=== PATIENT | male | born 1985 | race Caucasian/White ===

== ENCOUNTER 2016-07-13 21:17 | Inpatient (IN) | payer SELFPAY ==
--- NOTE | ~2016-07-13 | HP ---
History And Physical [facility] [address] [place]. [address] NAME: DAVON ROD : 89 STATUS : ADM IN [facility]#: [id number] AGE: 31 ADM/REG DATE : 07/13/16 MR#: [id number] REPORT SERV DATE: 07/14/16 DICTATED BY: JYOTI CUMMINGS DATE: 07/13/16 REPORT STATUS : Draft TRANSCRIBED BY: MODKirill DATE: 07/13/16 DATE OF ADMISSION: 07/13/2016 REASON FOR ADMISSION: Anemia with guaiac-positive stool. HISTORY OF PRESENT ILLNESS: A 31-year-old, type 1 insulin-dependent diabetic who became insulin-dependent at age 11 unfortunately, known history of DKA two and half years ago, known history of neuropathy on gabapentin, known history of gastric ulcer. He had an endoscopy in the past. He has had two episodes of H.pylori as well and has been treated apparently in the past, unclear who did his endoscopy but not in [place]. The patient comes in with a direct admission request from [facility]. The patient since this morning has had diarrhea with melena about three episodes, nausea with vomiting that after retching has some mild streaks of bright red blood from his emesis. The patient though did have some bright red blood prior to his retching as well as hematemesis is very low amount but in [facility] it was positive, hemoglobin there was 14. The patient has been complaining of positive chills and epigastric abdominal pain. No fevers. Positive nausea. Positive vomiting. Positive diarrhea. Some mild substernal musculoskeletal palpable reproducible chest pain. Only shortness of breath in the past. He gets constipated for which he is not currently. REVIEW OF SYSTEMS: Review of systems done, see HPI. Otherwise, negative. I would like to note additionally patient apparently has sugar over 500. EMS on the way to [facility] got 10 units of insulin per ER physician. I only see 6 IV. His sodium corrected down to 183. The patient was given Protonix 40 in [facility] as well as Phenergan. PAST MEDICAL HISTORY: See above. IBS. PAST SURGICAL HISTORY: See above. ALLERGIES: CONTRAST DYE AND SHELLFISH. FAMILY HISTORY: Hypertension at least one parent. MEDICATIONS: See MAR. We will continue what is relevant. He has a sliding scale and NovoLog. He takes Lantus 40 units subcu at bedtime with Neurontin unknown dose and frequency as well as IBS medication. SOCIAL HISTORY: Still a smoker about a pack a day, his last nine pack years actively. No drug use. No alcohol use per patient. OBJECTIVE: VITALS SIGNS: 169/99, 71 heart rate, 14 respirations, 99% on room air. GENERAL: No acute distress. HEENT: PERRLA. No scleral icterus. History And Physical [address] [address] NAME: DAVON ROD : 89 STATUS : ADM IN PAT#: [id number] AGE: 31 ADM/REG DATE : 07/13/16 MR#: [id number] REPORT SERV DATE: 07/14/16 DICTATED BY: JYOTI CUMMINGS DATE: 07/13/16 REPORT STATUS : Draft TRANSCRIBED BY: MODKirill DATE: 07/13/16 CARDIOVASCULAR: Regular rate and rhythm. No murmur. RESPIRATORY: Clear to auscultation bilaterally. No wheezes or crackles. ABDOMEN: Mild tenderness to palpation, more in the epigastric region. No rebound tenderness. No peritoneal signs. EXTREMITIES: No edema. No ecchymosis. NEURO: His GCS is 15. A and O 4/4. LABS: At [facility], 14.5 white count, 14 hemoglobin, 226,000 platelets. Potassium 4.3, 29 bicarb, 1.1 creatinine. UA was clean except 500 glucose and some mild ketones at that time. INR 1.29. ASSESSMENT: 1. Mild hematemesis. 2. Melena. 3. Insulin-dependent diabetes. 4. History of gastric ulcer plus or minus H pylori. PLAN: We will go ahead and admit this patient to Dr. Mccann's service. Regarding his SIRS panculture, empiric Levaquin, Flagyl. To have a CT of abdomen and pelvis and his panculture events. No infection. We will get a stool C. diff regarding his diarrhea, however, that may be Hemoccult-positive stool as Hemoccult-positive stool is a cathartic and can cause diarrhea. Place on Protonix 40 IV b.i.d. Set up for possible endoscopy possibly done as an outpatient if his hemoglobin continues to be as stable. We will maintain euglycemia. Get an A1c regarding his insulin requirements. See rest of my orders. All questions were answered. It took well over 60 minutes to do reference [employer] and [employer]. WST/MODL Jyoti Cummings DO / [id number] CC: Jyoti Cummings DO No PCP
--- NOTE | ~2016-07-13 | DS ---
Discharge Summary [facility] [address] [place]. [address] NAME: DAVON ROD : 89 STATUS : DIS IN PAT#: [id number] AGE: 31 ADM/REG DATE : 07/13/16 MR#: [id number] REPORT SERV DATE: 07/16/16 DICTATED BY: DASIA MCCANN DATE: 07/15/16 REPORT STATUS : Draft TRANSCRIBED BY: CRISTINA DATE: 07/15/16 ADMISSION DATE: 07/13/2016 DISCHARGE DATE: 07/15/2016 REASON FOR ADMISSION: Direct admission from [facility] ER for guaiac-positive stool. HISTORY OF PRESENT ILLNESS: Please refer Dr. Ike Concepcion's history and physical dated 07/13/2016 for complete details regarding the patient's admission. In brief, the patient was directly admitted to the Hospitalist Service for management of his hematemesis and melena. HOSPITAL COURSE: The patient had an uncomplicated hospital course. He was apparently Hemoccult positive at the outside facility, but he was Hemoccult negative at this facility. C diff was checked and was negative. He did not have any hematemesis while he was hospitalized. We checked his serial CBCs. His hemoglobin had been stable at around 12.5. CT scan of his abdomen and pelvis was done, which showed no diffuse or focal colonic wall thickening. There is bilateral nephrolithiasis. We resumed his insulin as the patient is a type 1 diabetic. His hemoglobin A1c is around 9%. Dr. Umana was stock preparation operator and was consulted, and recommended just continuing Zantac and Carafate. No further intervention was required. The patient will be discharged home in a stable condition. DISCHARGE DIAGNOSES: 1. Hematemesis, resolved. 2. Abdominal pain, unknown etiology, resolved, likely secondary to constipation. 3. Type 1 insulin-dependent diabetic. 4. Bilateral nephrolithiasis. PROCEDURES: Include CT scan of the abdomen and pelvis without contrast. CONSULTATION: With Dr. Umana. DISCHARGE MEDICATIONS: Include Zantac 150 mg twice a day, gabapentin 600 mg twice a day, insulin glargine 40 units twice a day and insulin NovoLog 70/30 at 20 units three times a day before meals, Carafate 1 g with meals, vitamin D, and vitamin C. FOLLOWUP: The patient will follow up with PCP. JOANN Dasia Mccann MD / [id number] Discharge Summary [address] [place]. [address] NAME: DAVON ROD : 89 STATUS : DIS IN PAT#: [id number] AGE: 31 ADM/REG DATE : 07/13/16 MR#: [id number] REPORT SERV DATE: 07/16/16 DICTATED BY: DASIA MCCANN DATE: 07/15/16 REPORT STATUS : Draft TRANSCRIBED BY: CRISTINA DATE: 07/15/16 CC: MD MARCUS Gomez
[2016-07-13 23:13] LABS: BASOPHILS 0.2 %; BASOPHILS ABSOLUTE 0.02 10/3/uL (0.0-0.16); EOSINOPHILS 0.6 %; EOSINOPHILS ABSOLUTE 0.07 10/3/uL (0.0-0.53); HEMATOCRIT 36.5 % (40.0-51.0); HEMOGLOBIN 12.5 g/dL (13.6-17.8); IMMATURE GRANULOCYTES 0.3 %; IMMATURE GRANULOCYTES ABSOLUTE 0.03 10/3/uL (0.0-0.11); LYMPHOCYTES 24.7 %; LYMPHOCYTES ABSOLUTE 2.66 10/3/uL (0.67-4.30); MEAN CORPUS HGB CONC 34.2 g/dL (32.0-36.0); MEAN CORPUSCULAR HEMOGLOB 26.7 pg (26.0-34.0); MEAN CORPUSCULAR VOLUME 77.8 fL (80-100); MEAN PLATELET VOLUME 9.9 fL (9.2-13.0); MONOCYTES 5.9 %; MONOCYTES ABSOLUTE 0.64 10/3/uL (0.21-1.20); NEUTROPHILS 68.3 %; NEUTROPHILS ABSOLUTE 7.36 10/3/uL (2.02-8.40); PLATELET COUNT 202 10/3/uL (150-400); RBC DISTRIBUTION WIDTH 12.9 % (12.0-16.0); RED CELL COUNT 4.69 10/6/uL (4.7-6.1); WHITE BLOOD CELLS 10.8 10/3/uL (4.5-10.5)
[2016-07-13 23:14] LABS: MANUAL DIFF NO %
[2016-07-13 23:37] LABS: A/G RATIO 1.3 (0.7-1.9); ALBUMIN 3.7 G/DL (3.5-5.0); ALKALINE PHOSPHATASE 76 U/L (45-117); BUN (BLOOD UREA NITROGEN) 13 MG/DL (6-23); CALCIUM, SERUM 8.6 MG/DL (8.5-10.4); CHLORIDE, SERUM 111 MMOL/L (96-112); CO2 (CARBON DIOXIDE) 26 MMOL/L (24-34); CPK 69 U/L (0-200); CREATININE 0.99 MG/DL (0.70-1.30); GFR AFRICAN AMERICAN 119 ML/MIN (>=60); GFR NON AFRICAN AMERICAN 102 ML/MIN (>=60); GLOBULIN 2.9 G/DL (2.5-4.1); GLUCOSE, SERUM 146 MG/DL (60-99); PHOSPHORUS, SERUM 2.9 MG/DL (2.5-4.5); POTASSIUM, SERUM 3.5 MMOL/L (3.5-5.3); SGOT(AST) 8 U/L (5-40); SGPT(ALT) 16 U/L (5-65); SODIUM, SERUM 148 MMOL/L (135-148); TOTAL BILIRUBIN 0.6 MG/DL (0-1.2); TOTAL PROTEIN 6.6 G/DL (6.0-8.5); TROPONIN I <0.02 NG/ML (<0.05); ULTRASENSITIVE TSH 0.401 MCIU/ML (0.358-3.740)
[2016-07-13 23:47] LABS: CK-MB < 0.5 NG/ML
[2016-07-14 00:20] LABS: PROCALCITONIN <0.05 ng/mL (<0.5)
[2016-07-14 04:57] LABS: CPK 71 U/L (0-200); TROPONIN I <0.02 NG/ML (<0.05)
[2016-07-14 05:00] LABS: CK-MB < 0.5 NG/ML
[2016-07-14 07:30] LABS: HEMATOCRIT 35.8 % (40.0-51.0); HEMOGLOBIN 12.4 g/dL (13.6-17.8)
[2016-07-14 07:31] LABS: BUN (BLOOD UREA NITROGEN) 12 MG/DL (6-23); CALCIUM, SERUM 8.7 MG/DL (8.5-10.4); CHLORIDE, SERUM 111 MMOL/L (96-112); CO2 (CARBON DIOXIDE) 25 MMOL/L (24-34); CREATININE 0.92 MG/DL (0.70-1.30); GFR AFRICAN AMERICAN 130 ML/MIN (>=60); GFR NON AFRICAN AMERICAN 112 ML/MIN (>=60); GLUCOSE, SERUM 134 MG/DL (60-99); PHOSPHORUS, SERUM 2.6 MG/DL (2.5-4.5); POTASSIUM, SERUM 3.5 MMOL/L (3.5-5.3); SODIUM, SERUM 147 MMOL/L (135-148)
[2016-07-14] MEDS ORDERED: NEUR600 PO (10:54)
[2016-07-14] MEDS ORDERED: NOVOPENMIX SC (10:55)
[2016-07-14] MEDS ORDERED: VITAMIN D1000 UNI1 PO (10:55)
[2016-07-14] MEDS ORDERED: LANTUS SC (10:55)
[2016-07-14] MEDS ORDERED: VITC500 PO (10:55)
[2016-07-14] MEDS ORDERED: SUCR PO (10:55)
[2016-07-14 18:51] LABS: HEMATOCRIT 38.6 % (40.0-51.0); HEMOGLOBIN 12.9 g/dL (13.6-17.8)
[2016-07-15 07:02] LABS: HEMATOCRIT 34.6 % (40.0-51.0)
[2016-07-15 07:12] LABS: CALCIUM, SERUM 8.3 MG/DL (8.5-10.4); CHLORIDE, SERUM 106 MMOL/L (96-112); CO2 (CARBON DIOXIDE) 28 MMOL/L (24-34); CREATININE 0.77 MG/DL (0.70-1.30); GFR AFRICAN AMERICAN 142 ML/MIN (>=60); GFR NON AFRICAN AMERICAN 123 ML/MIN (>=60); POTASSIUM, SERUM 3.1 MMOL/L (3.5-5.3); SODIUM, SERUM 144 MMOL/L (135-148)
[2016-07-15 07:13] LABS: BUN (BLOOD UREA NITROGEN) 8 MG/DL (6-23); GLUCOSE, SERUM 76 MG/DL (60-99)
[2016-07-15] MEDS ORDERED: ZANTAC150 MG PO (10:11)
== END 2016-07-15 13:22 | disposition home or self-care (01) | DRG 379 ==
LOC: 7NO 21:17
PROVIDERS: Internal Medicine
DX: K92.0 Hematemesis (principal); E10.65 Type 1 diabetes mellitus with hyperglycemia; Z79.4 Long term (current) use of insulin; Z91.013 Allergy to seafood; N20.0 Calculus of kidney; K59.00 Constipation, unspecified; R10.9 Unspecified abdominal pain
CPT/HCPCS: 74176; 80048; 80053; 82150; 82272; 82550; 82553; 82962; 83036; 83690; 83735; 84100; 84132; 84145; 84443; 84484; 85014; 85018; 85025; 87040; 87338; 87493; 87493-59; 93005; A9270-GY; C9113; J1170; J1956; J2405